=== PATIENT | female | born 1980 | race Caucasian/White ===

== ENCOUNTER 2020-10-28 11:33 | Inpatient (IN) | payer OTHER ==
[2020-10-28 15:17] VITALS: BMI 20.8
[2020-10-28] MEDS ORDERED: MAGNESIUM HYDROX 2400MG/30ML ORAL SUSPENSION 30 ML CUP PO PRN (15:25)
[2020-10-28] MEDS ORDERED: MAG HYDROX/AL HYDROX/SIMETH 30 ML UNIT-DOSE CUP PO PRN (15:25)
[2020-10-28] MEDS ORDERED: IBUPROFEN 400 MG TABLET (FP) PO PRN (15:25)
[2020-10-28] MEDS ORDERED: MAGNESIUM CITRATE 300 ML BOTTLE PO PRN (15:25)
[2020-10-28] MEDS ORDERED: chlordiazePOXIDE HCL 25 MG CAPSULE PO PRN (15:25)
[2020-10-28] MEDS ORDERED: NICOTINE POLACRILEX 2 MG GUM BUC PRN (15:25)
[2020-10-28] MEDS ORDERED: ACETAMINOPHEN 325 MG TABLET (FP) PO PRN ×2 (15:25)
[2020-10-28] MEDS ORDERED: MENTHOL/PHENOL 1 EACH UD MM PRN (15:25)
[2020-10-28] MEDS ORDERED: ONDANSETRON *ODT* 4 MG TABLET SL PRN (15:25)
[2020-10-28] MEDS ORDERED: BISMUTH SUBSALICYLATE 524 MG/30 ML UD PO PRN (15:25)
[2020-10-28] MEDS: chlordiazePOXIDE HCL 25 MG CAPSULE PO SCH ×2 (17:27→22:08)
[2020-10-28] MEDS: NICOTINE 21 MG/24 HOURS TOPICAL PATCH TD SCH (17:48)
[2020-10-28] MEDS ORDERED: hydrOXYzine PAMOATE 25 MG CAPSULE (FP) PO SCH (18:00)
[2020-10-28] MEDS: PRENATAL VITAMINS W/ FOLIC ACID TABLET (FP) PO SCH (18:30)
[2020-10-28] MEDS: THIAMINE HCL 100 MG TABLET (FP) PO SCH (21:21)
[2020-10-28] MEDS ORDERED: MELATONIN 5 MG TABLETS PO SCH (22:00)
[2020-10-29] MEDS: chlordiazePOXIDE HCL 25 MG CAPSULE PO SCH ×4 (05:57→22:04)
[2020-10-29] MEDS ORDERED: MASKS NR ONE (09:15)
[2020-10-29 10:29] LABS: HEMATOCRIT 31.6 % (32.4-45.2); HEMOGLOBIN 10.6 GM/dL (10.7-15.3); MCH 32.4 pg (25.7-33.7); MCHC 33.4 g/dl (32.0-36.0); MEAN CELL VOLUME 97.2 fl (80-96); MEAN PLT VOLUME 9.7 fl (7.5-11.1); PLATELET COUNT 66 K/MM3 (134-434); RBC 3.25 M/mm3 (3.60-5.2); RDW 13.6 % (11.6-15.6); WHITE BLOOD COUNT 3.8 K/mm3 (4.0-10.0)
[2020-10-29 10:30] LABS: POTASSIUM 3.4 mmol/L (3.5-5.1)
[2020-10-29] MEDS: PRENATAL VITAMINS W/ FOLIC ACID TABLET (FP) PO SCH (10:35)
[2020-10-29] MEDS: NICOTINE 21 MG/24 HOURS TOPICAL PATCH TD SCH (10:35)
[2020-10-29] MEDS: METHOCARBAMOL 500 MG TABLET PO PRN (10:36)
[2020-10-29 10:37] LABS: ALBUMIN 3.4 g/dl (3.4-5.0); BLOOD UREA NITROGEN 12.2 mg/dL (7-18)
[2020-10-29 10:40] LABS: CREATININE 0.6 mg/dL (0.55-1.3)
[2020-10-29 10:42] LABS: BILIRUBIN,TOTAL 1.1 mg/dL (0.2-1); TOT PROT 6.6 g/dl (6.4-8.2)
[2020-10-29] MEDS: LISINOPRIL 10 MG TABLET PO SCH (11:41)
[2020-10-29] MEDS: HYDROCHLOROTHIAZIDE 25 MG TABLET (FP) PO SCH (11:41)
[2020-10-29] MEDS ORDERED: IBUPROFEN 600 MG TABLET (FP) PO PRN (13:40)
[2020-10-29] MEDS: METHYL SALICYLATE/MENTHOL OINT 30 GM TUBE TP SCH ×2 (15:47→22:04)
[2020-10-29] MEDS: hydrOXYzine PAMOATE 50 MG CAPSULE (FP) PO PRN ×2 (17:42→22:04)
[2020-10-29 18:50] LABS: URINE APPEARANCE CLEAR; URINE BILIRUBIN NEGATIVE (NEGATIVE); URINE COLOR YELLOW; URINE GLUCOSE (UA) NEGATIVE (NEGATIVE); URINE KETONE NEGATIVE (NEGATIVE); URINE LEUK ESTERASE NEGATIVE (NEGATIVE); URINE NITRITE NEGATIVE (NEGATIVE); URINE PROTEIN NEGATIVE (NEGATIVE)
[2020-10-29] MEDS: THIAMINE HCL 100 MG TABLET (FP) PO SCH (22:03)
[2020-10-29] MEDS: SUVOREXANT 10 MG TABLET PO PRN (22:04)
[2020-10-30] MEDS: chlordiazePOXIDE HCL 25 MG CAPSULE PO SCH ×4 (06:03→22:05)
[2020-10-30] MEDS: METHYL SALICYLATE/MENTHOL OINT 30 GM TUBE TP SCH ×2 (10:30→23:47)
[2020-10-30] MEDS: NICOTINE 21 MG/24 HOURS TOPICAL PATCH TD SCH (10:31)
[2020-10-30 10:34] LABS: BASO % 0.5 % (0-2.0); EOS % 3.3 % (0-4.5); HEMATOCRIT 32.4 % (32.4-45.2); HEMOGLOBIN 10.7 GM/dL (10.7-15.3); MCH 32.1 pg (25.7-33.7); MCHC 33.1 g/dl (32.0-36.0); MEAN PLT VOLUME 10.1 fl (7.5-11.1); MONO % 10.9 % (3.8-10.2); NEUT % 50.3 % (42.8-82.8); PLATELET COUNT 83 K/MM3 (134-434); RBC 3.34 M/mm3 (3.60-5.2); RDW 13.8 % (11.6-15.6); WHITE BLOOD COUNT 3.3 K/mm3 (4.0-10.0)
[2020-10-30 10:45] LABS: ALBUMIN 3.5 g/dl (3.4-5.0); BLOOD UREA NITROGEN 12.4 mg/dL (7-18)
[2020-10-30 10:46] LABS: CALCIUM 8.9 mg/dL (8.5-10.1)
[2020-10-30 10:47] LABS: BILIRUBIN,TOTAL 0.4 mg/dL (0.2-1); TOT PROT 6.9 g/dl (6.4-8.2)
[2020-10-30 10:49] LABS: CREATININE 0.5 mg/dL (0.55-1.3)
[2020-10-30] MEDS: LISINOPRIL 10 MG TABLET PO SCH (13:17)
[2020-10-30] MEDS: HYDROCHLOROTHIAZIDE 25 MG TABLET (FP) PO SCH (13:17)
[2020-10-30] MEDS: PRENATAL VITAMINS W/ FOLIC ACID TABLET (FP) PO SCH (13:17)
[2020-10-30] MEDS: hydrOXYzine PAMOATE 50 MG CAPSULE (FP) PO PRN (14:55)
[2020-10-30] MEDS: METHOCARBAMOL 500 MG TABLET PO PRN (14:55)
[2020-10-30] MEDS: THIAMINE HCL 100 MG TABLET (FP) PO SCH (22:05)
[2020-10-30] MEDS: SUVOREXANT 10 MG TABLET PO PRN (22:06)
[2020-10-31] MEDS ORDERED: chlordiazePOXIDE HCL 10 MG CAPSULE PO PRN
[2020-10-31] MEDS: chlordiazePOXIDE HCL 10 MG CAPSULE PO SCH ×2 (06:34→10:13)
[2020-10-31 09:28] LABS: BASO % 0.3 % (0-2.0); HEMATOCRIT 32.1 % (32.4-45.2); HEMOGLOBIN 10.6 GM/dL (10.7-15.3); LYMPH % 29.6 % (8-40); MCH 32.2 pg (25.7-33.7); MCHC 32.9 g/dl (32.0-36.0); MEAN CELL VOLUME 97.9 fl (80-96); MONO % 16.8 % (3.8-10.2); NEUT % 50.3 % (42.8-82.8); PLATELET COUNT 108 K/MM3 (134-434); RBC 3.28 M/mm3 (3.60-5.2); RDW 14.1 % (11.6-15.6); WHITE BLOOD COUNT 4.4 K/mm3 (4.0-10.0)
[2020-10-31 09:38] LABS: POTASSIUM 4.2 mmol/L (3.5-5.1)
[2020-10-31 10:06] LABS: ALBUMIN 3.4 g/dl (3.4-5.0); BLOOD UREA NITROGEN 15.8 mg/dL (7-18)
[2020-10-31 10:09] LABS: CREATININE 0.5 mg/dL (0.55-1.3)
[2020-10-31 10:10] LABS: BILIRUBIN,TOTAL 0.7 mg/dL (0.2-1); TOT PROT 6.7 g/dl (6.4-8.2)
[2020-10-31] MEDS: PRENATAL VITAMINS W/ FOLIC ACID TABLET (FP) PO SCH (10:13)
[2020-10-31] MEDS: NICOTINE 21 MG/24 HOURS TOPICAL PATCH TD SCH (10:13)
[2020-10-31] MEDS: METHYL SALICYLATE/MENTHOL OINT 30 GM TUBE TP SCH ×2 (10:14→22:09)
[2020-10-31] MEDS: LORazepam 0.5 MG TABLET PO PRN (13:06)
[2020-10-31] MEDS: LORazepam 1 MG TABLET PO SCH ×2 (16:49→22:09)
[2020-10-31] MEDS: hydrOXYzine PAMOATE 50 MG CAPSULE (FP) PO PRN (19:02)
[2020-10-31] MEDS: SUVOREXANT 10 MG TABLET PO PRN (22:08)
[2020-10-31] MEDS: THIAMINE HCL 100 MG TABLET (FP) PO SCH (22:09)
[2020-11-01] MEDS ORDERED: chlordiazePOXIDE HCL 10 MG CAPSULE PO SCH (05:00)
[2020-11-01] MEDS: LORazepam 0.5 MG TABLET PO SCH ×4 (06:31→22:08)
[2020-11-01] MEDS: NICOTINE 21 MG/24 HOURS TOPICAL PATCH TD SCH (10:05)
[2020-11-01] MEDS: LISINOPRIL 10 MG TABLET PO SCH (10:06)
[2020-11-01] MEDS: HYDROCHLOROTHIAZIDE 25 MG TABLET (FP) PO SCH (10:06)
[2020-11-01] MEDS: METHYL SALICYLATE/MENTHOL OINT 30 GM TUBE TP SCH ×2 (10:08→22:44)
[2020-11-01] MEDS: PRENATAL VITAMINS W/ FOLIC ACID TABLET (FP) PO SCH (10:09)
[2020-11-01] MEDS: hydrOXYzine PAMOATE 50 MG CAPSULE (FP) PO PRN ×3 (10:10→23:19)
[2020-11-01] MEDS: METHOCARBAMOL 500 MG TABLET PO PRN ×2 (14:06→22:07)
[2020-11-01] MEDS: LORazepam 0.5 MG TABLET PO PRN (14:06)
[2020-11-01] MEDS: THIAMINE HCL 100 MG TABLET (FP) PO SCH (22:08)
[2020-11-02] MEDS ORDERED: chlordiazePOXIDE HCL 10 MG CAPSULE PO ONE (05:00)
[2020-11-02] MEDS ORDERED: LORazepam 0.5 MG TABLET PO ONE (05:00)
[2020-11-02] MEDS: METHYL SALICYLATE/MENTHOL OINT 30 GM TUBE TP SCH (10:09)
[2020-11-02] MEDS: PRENATAL VITAMINS W/ FOLIC ACID TABLET (FP) PO SCH (10:09)
[2020-11-02] MEDS: NICOTINE 21 MG/24 HOURS TOPICAL PATCH TD SCH (10:09)
[2020-11-02] MEDS: LISINOPRIL 10 MG TABLET PO SCH (10:09)
[2020-11-02] MEDS: HYDROCHLOROTHIAZIDE 25 MG TABLET (FP) PO SCH (10:09)
[2020-11-02] MEDS: hydrOXYzine PAMOATE 50 MG CAPSULE (FP) PO PRN (10:10)
[2020-11-02 10:47] LABS: SGOT/AST 259 U/L (15-37)
[2020-11-02 10:48] LABS: SGPT/ALT 416 U/L (13-61)
[2020-11-02 15:31] VITALS: BP 115/68; PULSE 97; TEMP 97.8
== END 2020-11-02 13:50 | disposition home or self-care (01) | DRG 897 ==
LOC: YASAS 11:33 → Y6N 16:01
PROVIDERS: ADMIT Allergy & Immunology; ATTEND Allergy & Immunology
PROC: HZ2ZZZZ Detoxification Services for Substance Abuse Treatment (ICD-10-PCS; principal; 2020-10-28)
DX: F10.230 Alcohol dependence with withdrawal, uncomplicated (principal); F10.24 Alcohol dependence with alcohol-induced mood disorder; F10.280 Alcohol dependence with alcohol-induced anxiety disorder; F10.282 Alcohol dependence with alcohol-induced sleep disorder; F14.10 Cocaine abuse, uncomplicated; F12.10 Cannabis abuse, uncomplicated; F17.210 Nicotine dependence, cigarettes, uncomplicated; F32.9 Major depressive disorder, single episode, unspecified; I10 Essential (primary) hypertension; K21.9 Gastro-esophageal reflux disease without esophagitis; R94.5 Abnormal results of liver function studies; R74.01 Elevation of levels of liver transaminase levels; M79.642 Pain in left hand; R23.8 Other skin changes; R00.0 Tachycardia, unspecified; Z62.810 Personal history of physical and sexual abuse in childhood
CPT/HCPCS: 36415; 80053; 81003; 81025; 84450; 84460; 85025; 85027; 86780; 93005; 93010; C9803; U0003

== ENCOUNTER 2022-05-05 11:03 | Inpatient (IN) | payer OTHER ==
[2022-05-05 11:12] VITALS: BMI 24.8
[2022-05-05] MEDS ORDERED: DICYCLOMINE HCL 10 MG CAPSULE PO PRN (11:41)
[2022-05-05] MEDS ORDERED: MAG HYDROX/AL HYDROX/SIMETH 30 ML UNIT-DOSE CUP PO PRN (11:41)
[2022-05-05] MEDS ORDERED: MAGNESIUM HYDROX 2400MG/30ML ORAL SUSPENSION 30 ML CUP PO PRN (11:41)
[2022-05-05] MEDS ORDERED: IBUPROFEN 400 MG TABLET (FP) PO PRN (11:41)
[2022-05-05] MEDS ORDERED: BISMUTH SUBSALICYLATE 262 MG/15 ML BTL PO PRN (11:41)
[2022-05-05] MEDS ORDERED: ACETAMINOPHEN 325 MG TABLET (FP) PO PRN ×2 (11:41)
[2022-05-05] MEDS ORDERED: ONDANSETRON *ODT* 4 MG TABLET SL PRN (11:41)
[2022-05-05] MEDS ORDERED: IBUPROFEN 600 MG TABLET (FP) PO PRN (11:41)
[2022-05-05] MEDS ORDERED: MAGNESIUM CITRATE 300 ML BOTTLE PO PRN (11:41)
[2022-05-05] MEDS ORDERED: BENZOCAINE/MENTHOL (CHLORASEPTIC ) LOZENGE MM PRN (11:41)
[2022-05-05] MEDS ORDERED: LOPERAMIDE HCL 2 MG CAPSULE PO PRN (11:41)
[2022-05-05] MEDS: LORazepam 1 MG TABLET PO PRN (14:24)
[2022-05-05] MEDS: NICOTINE 10 MG CARTRIDGE (INHALER) IH PRN ×2 (14:26→17:59)
[2022-05-05] MEDS: hydrOXYzine PAMOATE 25 MG CAPSULE (FP) PO SCH ×3 (14:30→22:32)
[2022-05-05 14:32] LABS: HEMATOCRIT 29.7 % (32.4-45.2); HEMOGLOBIN 9.8 GM/dL (10.7-15.3); MCH 31.7 pg (25.7-33.7); MCHC 33.1 g/dl (32.0-36.0); MEAN CELL VOLUME 95.8 fl (80-96); MEAN PLT VOLUME 7.2 fl (7.5-11.1); PLATELET COUNT 405 10^3/uL (134-434); RDW 14.9 % (11.6-15.6); WHITE BLOOD COUNT 5.6 K/mm3 (4.0-10.0)
[2022-05-05 15:38] LABS: BLOOD UREA NITROGEN 8.8 mg/dL (7-18); CALCIUM 9.2 mg/dL (8.5-10.1)
[2022-05-05 15:39] LABS: ALBUMIN 3.8 g/dl (3.4-5.0)
[2022-05-05 15:42] LABS: CREATININE 0.8 mg/dL (0.55-1.3)
[2022-05-05 15:43] LABS: BILIRUBIN,TOTAL 0.2 mg/dL (0.2-1); TOT PROT 8.4 g/dl (6.4-8.2)
[2022-05-05] MEDS: METHOCARBAMOL 500 MG TABLET PO PRN (18:00)
[2022-05-05] MEDS: LORazepam 2 MG TABLET PO SCH ×2 (18:00→22:32)
[2022-05-05] MEDS ORDERED: MELATONIN 5 MG TABLETS PO SCH (22:00)
[2022-05-05] MEDS: THIAMINE HCL 100 MG TABLET (FP) PO SCH (22:32)
[2022-05-06] MEDS: hydrOXYzine PAMOATE 25 MG CAPSULE (FP) PO SCH ×5 (05:22→23:06)
[2022-05-06] MEDS: LORazepam 2 MG TABLET PO SCH ×4 (05:22→23:06)
[2022-05-06] MEDS: PRENATAL VITAMINS W/ FOLIC ACID TABLET (FP) PO SCH (10:45)
[2022-05-06] MEDS: FAMOTIDINE 20 MG TABLET PO SCH (11:49)
[2022-05-06] MEDS: LISINOPRIL 10 MG TABLET PO SCH (11:49)
[2022-05-06] MEDS: NICOTINE 14 MG/24 HOURS TOPICAL PATCH TD SCH (12:37)
[2022-05-06] MEDS: THIAMINE HCL 100 MG TABLET (FP) PO SCH (23:06)
[2022-05-06] MEDS: SUVOREXANT 10 MG TABLET PO PRN (23:08)
[2022-05-07] MEDS: LORazepam 1 MG TABLET PO PRN (01:43)
[2022-05-07] MEDS: hydrOXYzine PAMOATE 25 MG CAPSULE (FP) PO SCH ×5 (05:58→22:19)
[2022-05-07] MEDS: LORazepam 1 MG TABLET PO SCH ×4 (05:58→22:19)
[2022-05-07] MEDS: PRENATAL VITAMINS W/ FOLIC ACID TABLET (FP) PO SCH (10:49)
[2022-05-07] MEDS: FAMOTIDINE 20 MG TABLET PO SCH (10:50)
[2022-05-07] MEDS: LISINOPRIL 10 MG TABLET PO SCH (10:50)
[2022-05-07] MEDS: NICOTINE 14 MG/24 HOURS TOPICAL PATCH TD SCH (10:50)
[2022-05-07] MEDS: METHOCARBAMOL 500 MG TABLET PO PRN ×2 (10:50→17:56)
[2022-05-07] MEDS: NICOTINE 10 MG CARTRIDGE (INHALER) IH PRN (19:32)
[2022-05-07] MEDS: THIAMINE HCL 100 MG TABLET (FP) PO SCH (22:20)
[2022-05-07] MEDS: SUVOREXANT 10 MG TABLET PO PRN (22:21)
[2022-05-08] MEDS ORDERED: LORazepam 0.5 MG TABLET PO PRN
[2022-05-08] MEDS: LORazepam 0.5 MG TABLET PO SCH ×4 (06:03→22:26)
[2022-05-08] MEDS: hydrOXYzine PAMOATE 25 MG CAPSULE (FP) PO SCH ×5 (06:03→22:26)
[2022-05-08] MEDS: NICOTINE 10 MG CARTRIDGE (INHALER) IH PRN ×3 (06:04→18:16)
[2022-05-08] MEDS: FAMOTIDINE 20 MG TABLET PO SCH (10:03)
[2022-05-08] MEDS: NICOTINE 14 MG/24 HOURS TOPICAL PATCH TD SCH (10:03)
[2022-05-08] MEDS: PRENATAL VITAMINS W/ FOLIC ACID TABLET (FP) PO SCH (10:03)
[2022-05-08] MEDS: LISINOPRIL 10 MG TABLET PO SCH (10:03)
[2022-05-08] MEDS: METHOCARBAMOL 500 MG TABLET PO PRN (10:03)
[2022-05-08] MEDS: SUVOREXANT 10 MG TABLET PO PRN (22:25)
[2022-05-08] MEDS: THIAMINE HCL 100 MG TABLET (FP) PO SCH (22:26)
[2022-05-09] MEDS ORDERED: LORazepam 0.5 MG TABLET PO ONE (05:00)
[2022-05-09] MEDS: hydrOXYzine PAMOATE 25 MG CAPSULE (FP) PO SCH (05:46)
[2022-05-09 09:25] VITALS: BP 125/89; PULSE 69; TEMP 97.7
== END 2022-05-09 09:38 | disposition home or self-care (01) | DRG 897 ==
LOC: YASAS 11:03 → Y6N 13:49
PROVIDERS: ADMIT Allergy & Immunology; ATTEND Surgery
PROC: HZ2ZZZZ Detoxification Services for Substance Abuse Treatment (ICD-10-PCS; principal; 2022-05-05)
DX: F10.230 Alcohol dependence with withdrawal, uncomplicated (principal); F14.10 Cocaine abuse, uncomplicated; F12.10 Cannabis abuse, uncomplicated; F17.290 Nicotine dependence, other tobacco product, uncomplicated; F10.280 Alcohol dependence with alcohol-induced anxiety disorder; F41.9 Anxiety disorder, unspecified; D64.9 Anemia, unspecified; I10 Essential (primary) hypertension; K21.9 Gastro-esophageal reflux disease without esophagitis
CPT/HCPCS: 36415; 80053; 81025; 85027; 86780; C9803-CS; U0003; U0005

== ENCOUNTER 2022-05-14 11:37 | Inpatient (IN) | payer OTHER ==
[2022-05-14] MEDS ORDERED: ACETAMINOPHEN 325 MG TABLET (FP) PO PRN ×2 (19:58)
[2022-05-14] MEDS ORDERED: ONDANSETRON *ODT* 4 MG TABLET SL PRN (19:58)
[2022-05-14] MEDS ORDERED: LOPERAMIDE HCL 2 MG CAPSULE PO PRN (19:58)
[2022-05-14] MEDS ORDERED: BENZOCAINE/MENTHOL (CHLORASEPTIC ) LOZENGE MM PRN (19:58)
[2022-05-14] MEDS ORDERED: IBUPROFEN 600 MG TABLET (FP) PO PRN (19:58)
[2022-05-14] MEDS ORDERED: BISMUTH SUBSALICYLATE 524 MG/30 ML PO PRN (19:58)
[2022-05-14] MEDS ORDERED: MAGNESIUM HYDROX 2400MG/30ML ORAL SUSPENSION 30 ML CUP PO PRN (19:58)
[2022-05-14] MEDS ORDERED: IBUPROFEN 400 MG TABLET (FP) PO PRN (19:58)
[2022-05-14] MEDS ORDERED: MAGNESIUM CITRATE 300 ML BOTTLE PO PRN (19:58)
[2022-05-14] MEDS ORDERED: DICYCLOMINE HCL 10 MG CAPSULE PO PRN (19:58)
[2022-05-14] MEDS ORDERED: NICOTINE POLACRILEX 2 MG GUM BUC PRN (19:58)
[2022-05-14] MEDS ORDERED: chlordiazePOXIDE HCL 25 MG CAPSULE PO PRN (19:58)
[2022-05-14 20:18] VITALS: BMI 23.8
[2022-05-14] MEDS ORDERED: busPIRone HCL 5 MG TABLET PO ONE (20:27)
[2022-05-14] MEDS ORDERED: GABAPENTIN 100 MG CAPSULE PO ONE (20:28)
[2022-05-14] MEDS ORDERED: MELATONIN 5 MG TABLETS PO SCH (22:00)
[2022-05-14] MEDS: THIAMINE HCL 100 MG TABLET (FP) PO SCH (22:01)
[2022-05-14] MEDS: hydrOXYzine PAMOATE 25 MG CAPSULE (FP) PO SCH (22:01)
[2022-05-14] MEDS: NICOTINE 10 MG CARTRIDGE (INHALER) IH PRN (22:05)
[2022-05-14] MEDS: chlordiazePOXIDE HCL 25 MG CAPSULE PO SCH (22:06)
[2022-05-15] MEDS: chlordiazePOXIDE HCL 25 MG CAPSULE PO SCH ×4 (06:34→22:06)
[2022-05-15] MEDS: hydrOXYzine PAMOATE 25 MG CAPSULE (FP) PO SCH ×2 (06:35→10:32)
[2022-05-15 10:08] LABS: HEMATOCRIT 29.1 % (32.4-45.2); HEMOGLOBIN 9.9 GM/dL (10.7-15.3); MCH 32.1 pg (25.7-33.7); MCHC 34.1 g/dl (32.0-36.0); MEAN CELL VOLUME 94.1 fl (80-96); MEAN PLT VOLUME 7.9 fl (7.5-11.1); PLATELET COUNT 269 10^3/uL (134-434); RBC 3.09 M/mm3 (3.60-5.2); WHITE BLOOD COUNT 7.1 K/mm3 (4.0-10.0)
[2022-05-15 10:17] LABS: CALCIUM 8.8 mg/dL (8.5-10.1)
[2022-05-15 10:18] LABS: BLOOD UREA NITROGEN 13.5 mg/dL (7-18); CREATININE 0.9 mg/dL (0.55-1.3)
[2022-05-15 10:20] LABS: BILIRUBIN,TOTAL 0.4 mg/dL (0.2-1); TOT PROT 7.1 g/dl (6.4-8.2)
[2022-05-15 10:21] LABS: ALBUMIN 3.1 g/dl (3.4-5.0)
[2022-05-15] MEDS: PRENATAL VITAMINS W/ FOLIC ACID TABLET (FP) PO SCH (10:32)
[2022-05-15] MEDS: NICOTINE 21 MG/24 HOURS TOPICAL PATCH TD SCH (10:32)
[2022-05-15] MEDS: NICOTINE 10 MG CARTRIDGE (INHALER) IH PRN ×2 (10:33→22:09)
[2022-05-15] MEDS ORDERED: MELATONIN 5 MG TABLETS PO SCH (10:37)
[2022-05-15] MEDS: GABAPENTIN 100 MG CAPSULE PO SCH ×2 (13:46→22:06)
[2022-05-15 17:39] LABS: EPI CELLS >36 /uL (0-25.1); HYALINE CASTS 11 /uL (0-3.1); URINE APPEARANCE CLOUDY; URINE BACTERIA 2149 /uL (0-1359); URINE BILIRUBIN NEGATIVE (NEGATIVE); URINE COLOR YELLOW; URINE GLUCOSE (UA) NEGATIVE (NEGATIVE); URINE KETONE NEGATIVE (NEGATIVE); URINE LEUK ESTERASE 2+ (NEGATIVE); URINE NITRITE NEGATIVE (NEGATIVE); URINE PROTEIN TRACE (NEGATIVE); URINE RBC 17 /uL (0-23.9); URINE UROBILINOGEN 0.2 mg/dL (0.2-1.0); URINE WBC 207 /uL (0-25.8)
[2022-05-15] MEDS: LISINOPRIL 10 MG TABLET PO SCH (19:00)
[2022-05-15] MEDS: busPIRone HCL 5 MG TABLET PO SCH (22:05)
[2022-05-15] MEDS: QUEtiapine FUMARATE 50 MG TABLET PO SCH (22:06)
[2022-05-15] MEDS: THIAMINE HCL 100 MG TABLET (FP) PO SCH (22:06)
[2022-05-16] MEDS: chlordiazePOXIDE HCL 25 MG CAPSULE PO SCH ×4 (05:36→22:01)
[2022-05-16] MEDS: hydrOXYzine PAMOATE 25 MG CAPSULE (FP) PO PRN ×2 (05:37→17:55)
[2022-05-16] MEDS: GABAPENTIN 100 MG CAPSULE PO SCH ×3 (05:37→22:01)
[2022-05-16] MEDS: PRENATAL VITAMINS W/ FOLIC ACID TABLET (FP) PO SCH (10:24)
[2022-05-16] MEDS: LISINOPRIL 10 MG TABLET PO SCH (10:26)
[2022-05-16] MEDS: NICOTINE 21 MG/24 HOURS TOPICAL PATCH TD SCH (10:31)
[2022-05-16] MEDS: busPIRone HCL 5 MG TABLET PO SCH ×2 (10:31→22:00)
[2022-05-16 18:49] LABS: EPI CELLS >36 /uL (0-25.1); HYALINE CASTS 2 /uL (0-3.1); PH,URINE 6.5 (5.0-8.0); URINE APPEARANCE CLOUDY; URINE BACTERIA 1993 /uL (0-1359); URINE BILIRUBIN NEGATIVE (NEGATIVE); URINE COLOR YELLOW; URINE GLUCOSE (UA) NEGATIVE (NEGATIVE); URINE KETONE NEGATIVE (NEGATIVE); URINE LEUK ESTERASE 2+ (NEGATIVE); URINE NITRITE NEGATIVE (NEGATIVE); URINE PROTEIN NEGATIVE (NEGATIVE); URINE RBC 12 /uL (0-23.9); URINE UROBILINOGEN 0.2 mg/dL (0.2-1.0); URINE WBC 89 /uL (0-25.8)
[2022-05-16] MEDS: QUEtiapine FUMARATE 50 MG TABLET PO SCH (22:00)
[2022-05-16] MEDS: THIAMINE HCL 100 MG TABLET (FP) PO SCH (22:01)
[2022-05-16] MEDS: NICOTINE 10 MG CARTRIDGE (INHALER) IH PRN (22:03)
[2022-05-17] MEDS ORDERED: chlordiazePOXIDE HCL 10 MG CAPSULE PO PRN
[2022-05-17] MEDS: GABAPENTIN 100 MG CAPSULE PO SCH ×3 (05:39→22:15)
[2022-05-17] MEDS: chlordiazePOXIDE HCL 10 MG CAPSULE PO SCH ×4 (05:39→22:15)
[2022-05-17] MEDS: NICOTINE 10 MG CARTRIDGE (INHALER) IH PRN ×4 (05:40→22:16)
[2022-05-17] MEDS: busPIRone HCL 5 MG TABLET PO SCH ×2 (10:19→22:15)
[2022-05-17] MEDS: PRENATAL VITAMINS W/ FOLIC ACID TABLET (FP) PO SCH (10:19)
[2022-05-17] MEDS: LISINOPRIL 10 MG TABLET PO SCH (10:19)
[2022-05-17] MEDS: NICOTINE 21 MG/24 HOURS TOPICAL PATCH TD SCH (10:23)
[2022-05-17] MEDS: MAG HYDROX/AL HYDROX/SIMETH 30 ML UNIT-DOSE CUP PO PRN (10:24)
[2022-05-17] MEDS: hydrOXYzine PAMOATE 25 MG CAPSULE (FP) PO PRN (17:55)
[2022-05-17] MEDS: THIAMINE HCL 100 MG TABLET (FP) PO SCH (22:15)
[2022-05-17] MEDS: QUEtiapine FUMARATE 50 MG TABLET PO SCH (22:15)
[2022-05-18] MEDS: chlordiazePOXIDE HCL 10 MG CAPSULE PO SCH ×2 (05:21→17:25)
[2022-05-18] MEDS: MAG HYDROX/AL HYDROX/SIMETH 30 ML UNIT-DOSE CUP PO PRN ×2 (05:21→17:25)
[2022-05-18] MEDS: GABAPENTIN 100 MG CAPSULE PO SCH ×3 (05:22→22:24)
[2022-05-18] MEDS: NICOTINE 10 MG CARTRIDGE (INHALER) IH PRN ×4 (05:24→22:27)
[2022-05-18] MEDS: PRENATAL VITAMINS W/ FOLIC ACID TABLET (FP) PO SCH (10:37)
[2022-05-18] MEDS: METHOCARBAMOL 500 MG TABLET PO PRN ×2 (10:37→22:25)
[2022-05-18] MEDS: LISINOPRIL 10 MG TABLET PO SCH (10:37)
[2022-05-18] MEDS: NICOTINE 21 MG/24 HOURS TOPICAL PATCH TD SCH (10:37)
[2022-05-18] MEDS: busPIRone HCL 10 MG TABLET (FP) PO SCH ×2 (10:45→22:24)
[2022-05-18] MEDS: hydrOXYzine PAMOATE 25 MG CAPSULE (FP) PO PRN (17:27)
[2022-05-18] MEDS: QUEtiapine FUMARATE 50 MG TABLET PO SCH (22:24)
[2022-05-18] MEDS: THIAMINE HCL 100 MG TABLET (FP) PO SCH (22:24)
[2022-05-19] MEDS ORDERED: chlordiazePOXIDE HCL 10 MG CAPSULE PO ONE (05:00)
[2022-05-19] MEDS: GABAPENTIN 100 MG CAPSULE PO SCH ×2 (06:27→13:45)
[2022-05-19] MEDS: hydrOXYzine PAMOATE 25 MG CAPSULE (FP) PO PRN ×2 (06:31→12:36)
[2022-05-19] MEDS: METHOCARBAMOL 500 MG TABLET PO PRN ×2 (06:31→12:36)
[2022-05-19] MEDS: busPIRone HCL 10 MG TABLET (FP) PO SCH (09:25)
[2022-05-19] MEDS: NICOTINE 21 MG/24 HOURS TOPICAL PATCH TD SCH (09:26)
[2022-05-19] MEDS: LISINOPRIL 10 MG TABLET PO SCH (09:26)
[2022-05-19] MEDS: PRENATAL VITAMINS W/ FOLIC ACID TABLET (FP) PO SCH (09:26)
[2022-05-19] MEDS: NICOTINE 10 MG CARTRIDGE (INHALER) IH PRN (09:28)
[2022-05-19 13:03] VITALS: BP 122/79; PULSE 74; TEMP 97.1
== END 2022-05-19 17:42 | disposition other institution (70) | DRG 897 ==
LOC: SUATTDRO 11:37 → YASAS 11:37 → Y3N 21:03
PROVIDERS: ADMIT Surgery; ATTEND Allergy & Immunology
PROC: HZ2ZZZZ Detoxification Services for Substance Abuse Treatment (ICD-10-PCS; principal; 2022-05-14)
DX: F10.230 Alcohol dependence with withdrawal, uncomplicated (principal); F14.20 Cocaine dependence, uncomplicated; F19.282 Other psychoactive substance dependence with psychoactive substance-induced sleep disorder; F19.280 Other psychoactive substance dependence with psychoactive substance-induced anxiety disorder; F12.20 Cannabis dependence, uncomplicated; F17.210 Nicotine dependence, cigarettes, uncomplicated; F19.24 Other psychoactive substance dependence with psychoactive substance-induced mood disorder; F41.1 Generalized anxiety disorder; F32.A Depression, unspecified; G47.00 Insomnia, unspecified; I10 Essential (primary) hypertension; K21.9 Gastro-esophageal reflux disease without esophagitis; R82.998 Other abnormal findings in urine; Z62.810 Personal history of physical and sexual abuse in childhood; Z91.410 Personal history of adult physical and sexual abuse
CPT/HCPCS: 36415; 80053; 81003; 85027; 86780; C9803-CS; U0003; U0005

== ENCOUNTER 2022-05-19 18:43 | Inpatient (IN) | payer OTHER ==
[2022-05-19] MEDS ORDERED: guaiFENesin 200 MG/10 ML 10 ML UNIT-DOSE CUPS PO PRN (19:52)
[2022-05-19] MEDS ORDERED: P-EPHED 60MG/TRIPROLIDI 2.5MG TABLET PO PRN (19:52)
[2022-05-19] MEDS ORDERED: BENZOCAINE/MENTHOL (CHLORASEPTIC ) LOZENGE MM PRN (19:52)
[2022-05-19] MEDS ORDERED: MELATONIN 5 MG TABLETS PO PRN (19:52)
[2022-05-19] MEDS ORDERED: MAGNESIUM CITRATE 300 ML BOTTLE PO PRN (19:52)
[2022-05-19] MEDS ORDERED: IBUPROFEN 400 MG TABLET (FP) PO PRN (19:52)
[2022-05-19] MEDS ORDERED: ACETAMINOPHEN 325 MG TABLET (FP) PO PRN (19:52)
[2022-05-19] MEDS ORDERED: MAG HYDROX/AL HYDROX/SIMETH 30 ML UNIT-DOSE CUP PO PRN (19:52)
[2022-05-19] MEDS ORDERED: MAGNESIUM HYDROX 2400MG/30ML ORAL SUSPENSION 30 ML CUP PO PRN (19:52)
[2022-05-19] MEDS ORDERED: LOPERAMIDE HCL 2 MG CAPSULE PO PRN (19:52)
[2022-05-19] MEDS: hydrOXYzine PAMOATE 25 MG CAPSULE (FP) PO PRN (21:09)
[2022-05-19] MEDS: METHOCARBAMOL 500 MG TABLET PO PRN (21:09)
[2022-05-19] MEDS: THIAMINE HCL 100 MG TABLET (FP) PO SCH (21:09)
[2022-05-19] MEDS: NICOTINE 10 MG CARTRIDGE (INHALER) IH PRN (21:12)
[2022-05-19] MEDS ORDERED: QUEtiapine FUMARATE 50 MG TABLET PO ONE (22:00)
[2022-05-19] MEDS ORDERED: busPIRone HCL 10 MG TABLET (FP) PO ONE (22:00)
[2022-05-19] MEDS ORDERED: GABAPENTIN 100 MG CAPSULE PO ONE (22:00)
[2022-05-20] MEDS: hydrOXYzine PAMOATE 25 MG CAPSULE (FP) PO PRN (06:04)
[2022-05-20] MEDS: LISINOPRIL 10 MG TABLET PO SCH (09:45)
[2022-05-20] MEDS: FAMOTIDINE 20 MG TABLET PO SCH (09:45)
[2022-05-20] MEDS: PRENATAL VITAMINS W/ FOLIC ACID TABLET (FP) PO SCH (09:46)
[2022-05-20] MEDS: NICOTINE 10 MG CARTRIDGE (INHALER) IH PRN ×3 (09:49→21:16)
[2022-05-20] MEDS ORDERED: busPIRone HCL 5 MG TABLET PO SCH (10:30)
[2022-05-20] MEDS: busPIRone HCL 10 MG TABLET (FP) PO SCH ×2 (13:30→21:17)
[2022-05-20] MEDS: GABAPENTIN 100 MG CAPSULE PO SCH ×2 (13:32→21:17)
[2022-05-20] MEDS ORDERED: metroNIDAZOLE 250 MG TABLET PO ONE (13:35)
[2022-05-20] MEDS: METHOCARBAMOL 500 MG TABLET PO PRN (13:39)
[2022-05-20] MEDS: LIDOCAINE 5% TOPICAL PATCH TP SCH (18:06)
[2022-05-20] MEDS: LIDOCAINE PATCH REMOVAL MC SCH (21:17)
[2022-05-20] MEDS: THIAMINE HCL 100 MG TABLET (FP) PO SCH (21:17)
[2022-05-20] MEDS: QUEtiapine FUMARATE 50 MG TABLET PO SCH (21:18)
[2022-05-21] MEDS: NICOTINE 10 MG CARTRIDGE (INHALER) IH PRN ×3 (06:50→21:34)
[2022-05-21] MEDS: METHOCARBAMOL 500 MG TABLET PO PRN ×3 (06:51→21:42)
[2022-05-21] MEDS: hydrOXYzine PAMOATE 25 MG CAPSULE (FP) PO PRN (06:52)
[2022-05-21] MEDS: GABAPENTIN 100 MG CAPSULE PO SCH ×3 (06:52→21:38)
[2022-05-21] MEDS: FAMOTIDINE 20 MG TABLET PO SCH (11:14)
[2022-05-21] MEDS: PRENATAL VITAMINS W/ FOLIC ACID TABLET (FP) PO SCH (11:14)
[2022-05-21] MEDS: busPIRone HCL 10 MG TABLET (FP) PO SCH ×2 (11:14→21:35)
[2022-05-21] MEDS: LISINOPRIL 10 MG TABLET PO SCH (11:14)
[2022-05-21] MEDS: LIDOCAINE 5% TOPICAL PATCH TP SCH (11:15)
[2022-05-21] MEDS: LIDOCAINE PATCH REMOVAL MC SCH (21:35)
[2022-05-21] MEDS: QUEtiapine FUMARATE 50 MG TABLET PO SCH (21:36)
[2022-05-21] MEDS: THIAMINE HCL 100 MG TABLET (FP) PO SCH (21:39)
[2022-05-22] MEDS: GABAPENTIN 100 MG CAPSULE PO SCH ×3 (06:29→22:37)
[2022-05-22] MEDS: NICOTINE 10 MG CARTRIDGE (INHALER) IH PRN ×3 (06:30→20:06)
[2022-05-22] MEDS: PRENATAL VITAMINS W/ FOLIC ACID TABLET (FP) PO SCH (11:01)
[2022-05-22] MEDS: busPIRone HCL 10 MG TABLET (FP) PO SCH ×2 (11:02→22:37)
[2022-05-22] MEDS: LISINOPRIL 10 MG TABLET PO SCH (11:02)
[2022-05-22] MEDS: LIDOCAINE 5% TOPICAL PATCH TP SCH (11:02)
[2022-05-22] MEDS: FAMOTIDINE 20 MG TABLET PO SCH (11:02)
[2022-05-22] MEDS: LIDOCAINE PATCH REMOVAL MC SCH (22:36)
[2022-05-22] MEDS: METHOCARBAMOL 500 MG TABLET PO PRN (22:37)
[2022-05-22] MEDS: THIAMINE HCL 100 MG TABLET (FP) PO SCH (22:37)
[2022-05-22] MEDS: QUEtiapine FUMARATE 50 MG TABLET PO SCH (22:37)
[2022-05-23] MEDS: GABAPENTIN 100 MG CAPSULE PO SCH ×3 (06:34→21:22)
[2022-05-23] MEDS: NICOTINE 10 MG CARTRIDGE (INHALER) IH PRN ×3 (06:42→21:21)
[2022-05-23] MEDS: PRENATAL VITAMINS W/ FOLIC ACID TABLET (FP) PO SCH (10:42)
[2022-05-23] MEDS: FAMOTIDINE 20 MG TABLET PO SCH (10:42)
[2022-05-23] MEDS: LISINOPRIL 10 MG TABLET PO SCH (10:43)
[2022-05-23] MEDS: busPIRone HCL 10 MG TABLET (FP) PO SCH ×2 (10:43→21:22)
[2022-05-23] MEDS: LIDOCAINE 5% TOPICAL PATCH TP SCH (10:43)
[2022-05-23] MEDS: METHOCARBAMOL 500 MG TABLET PO PRN ×3 (10:43→21:24)
[2022-05-23] MEDS ORDERED: NICOTINE 14 MG/24 HOURS TOPICAL PATCH TD SCH (11:30)
[2022-05-23] MEDS: NICOTINE 21 MG/24 HOURS TOPICAL PATCH TD SCH (12:59)
[2022-05-23] MEDS: THIAMINE HCL 100 MG TABLET (FP) PO SCH (21:22)
[2022-05-23] MEDS: QUEtiapine FUMARATE 50 MG TABLET PO SCH (21:22)
[2022-05-23] MEDS: LIDOCAINE PATCH REMOVAL MC SCH (21:22)
[2022-05-24] MEDS: GABAPENTIN 100 MG CAPSULE PO SCH ×3 (06:11→21:41)
[2022-05-24] MEDS: NICOTINE 10 MG CARTRIDGE (INHALER) IH PRN ×4 (06:11→21:43)
[2022-05-24] MEDS: PRENATAL VITAMINS W/ FOLIC ACID TABLET (FP) PO SCH (10:35)
[2022-05-24] MEDS: LIDOCAINE 5% TOPICAL PATCH TP SCH (10:35)
[2022-05-24] MEDS: FAMOTIDINE 20 MG TABLET PO SCH (10:36)
[2022-05-24] MEDS: NICOTINE 21 MG/24 HOURS TOPICAL PATCH TD SCH (10:36)
[2022-05-24] MEDS: LISINOPRIL 10 MG TABLET PO SCH (10:36)
[2022-05-24] MEDS: METHOCARBAMOL 500 MG TABLET PO PRN ×2 (10:37→21:41)
[2022-05-24] MEDS: busPIRone HCL 10 MG TABLET (FP) PO SCH ×2 (10:37→21:41)
[2022-05-24] MEDS: hydrOXYzine PAMOATE 25 MG CAPSULE (FP) PO PRN (17:08)
[2022-05-24] MEDS: QUEtiapine FUMARATE 50 MG TABLET PO SCH (21:41)
[2022-05-24] MEDS: THIAMINE HCL 100 MG TABLET (FP) PO SCH (21:41)
[2022-05-24] MEDS: LIDOCAINE PATCH REMOVAL MC SCH (21:42)
[2022-05-25] MEDS: NICOTINE 10 MG CARTRIDGE (INHALER) IH PRN ×4 (05:47→21:12)
[2022-05-25] MEDS: GABAPENTIN 100 MG CAPSULE PO SCH ×3 (05:48→21:13)
[2022-05-25] MEDS: PRENATAL VITAMINS W/ FOLIC ACID TABLET (FP) PO SCH (10:46)
[2022-05-25] MEDS: FAMOTIDINE 20 MG TABLET PO SCH (10:47)
[2022-05-25] MEDS: LISINOPRIL 10 MG TABLET PO SCH (10:47)
[2022-05-25] MEDS: METHOCARBAMOL 500 MG TABLET PO PRN ×2 (10:47→21:14)
[2022-05-25] MEDS: LIDOCAINE 5% TOPICAL PATCH TP SCH (10:47)
[2022-05-25] MEDS: busPIRone HCL 10 MG TABLET (FP) PO SCH ×2 (10:47→21:13)
[2022-05-25] MEDS: NICOTINE 21 MG/24 HOURS TOPICAL PATCH TD SCH (10:47)
[2022-05-25] MEDS: THIAMINE HCL 100 MG TABLET (FP) PO SCH (21:13)
[2022-05-25] MEDS: QUEtiapine FUMARATE 50 MG TABLET PO SCH (21:13)
[2022-05-25] MEDS: LIDOCAINE PATCH REMOVAL MC SCH (21:14)
[2022-05-26] MEDS: GABAPENTIN 100 MG CAPSULE PO SCH ×3 (06:18→21:05)
[2022-05-26] MEDS: NICOTINE 10 MG CARTRIDGE (INHALER) IH PRN ×3 (06:18→17:46)
[2022-05-26] MEDS: METHOCARBAMOL 500 MG TABLET PO PRN ×2 (06:19→21:05)
[2022-05-26] MEDS: NICOTINE 21 MG/24 HOURS TOPICAL PATCH TD SCH (10:43)
[2022-05-26] MEDS: PRENATAL VITAMINS W/ FOLIC ACID TABLET (FP) PO SCH (10:43)
[2022-05-26] MEDS: LIDOCAINE 5% TOPICAL PATCH TP SCH (10:43)
[2022-05-26] MEDS: busPIRone HCL 10 MG TABLET (FP) PO SCH ×2 (10:44→21:05)
[2022-05-26] MEDS: FAMOTIDINE 20 MG TABLET PO SCH (10:44)
[2022-05-26] MEDS: LISINOPRIL 10 MG TABLET PO SCH (10:44)
[2022-05-26] MEDS: THIAMINE HCL 100 MG TABLET (FP) PO SCH (21:06)
[2022-05-26] MEDS: QUEtiapine FUMARATE 50 MG TABLET PO SCH (21:08)
[2022-05-26] MEDS: LIDOCAINE PATCH REMOVAL MC SCH (21:08)
[2022-05-27] MEDS: NICOTINE 10 MG CARTRIDGE (INHALER) IH PRN ×4 (06:38→21:20)
[2022-05-27] MEDS: GABAPENTIN 100 MG CAPSULE PO SCH ×3 (06:39→21:11)
[2022-05-27] MEDS: busPIRone HCL 10 MG TABLET (FP) PO SCH ×2 (11:03→21:11)
[2022-05-27] MEDS: FAMOTIDINE 20 MG TABLET PO SCH (11:03)
[2022-05-27] MEDS: NICOTINE 21 MG/24 HOURS TOPICAL PATCH TD SCH (11:04)
[2022-05-27] MEDS: LIDOCAINE 5% TOPICAL PATCH TP SCH (11:04)
[2022-05-27] MEDS: PRENATAL VITAMINS W/ FOLIC ACID TABLET (FP) PO SCH (11:04)
[2022-05-27] MEDS: LISINOPRIL 10 MG TABLET PO SCH (11:05)
[2022-05-27] MEDS: hydrOXYzine PAMOATE 25 MG CAPSULE (FP) PO PRN ×2 (14:23→21:14)
[2022-05-27] MEDS: THIAMINE HCL 100 MG TABLET (FP) PO SCH (21:10)
[2022-05-27] MEDS: METHOCARBAMOL 500 MG TABLET PO PRN (21:14)
[2022-05-27] MEDS: QUEtiapine FUMARATE 50 MG TABLET PO SCH (21:14)
[2022-05-27] MEDS: LIDOCAINE PATCH REMOVAL MC SCH (21:18)
[2022-05-28] MEDS: NICOTINE 10 MG CARTRIDGE (INHALER) IH PRN ×4 (06:12→22:32)
[2022-05-28] MEDS: GABAPENTIN 100 MG CAPSULE PO SCH ×3 (06:12→22:32)
[2022-05-28] MEDS: PRENATAL VITAMINS W/ FOLIC ACID TABLET (FP) PO SCH (10:21)
[2022-05-28] MEDS: LISINOPRIL 10 MG TABLET PO SCH (10:21)
[2022-05-28] MEDS: FAMOTIDINE 20 MG TABLET PO SCH (10:21)
[2022-05-28] MEDS: busPIRone HCL 10 MG TABLET (FP) PO SCH ×2 (10:21→22:31)
[2022-05-28] MEDS: LIDOCAINE 5% TOPICAL PATCH TP SCH (10:22)
[2022-05-28] MEDS: NICOTINE 21 MG/24 HOURS TOPICAL PATCH TD SCH (10:22)
[2022-05-28] MEDS: METHOCARBAMOL 500 MG TABLET PO PRN (10:23)
[2022-05-28] MEDS: LIDOCAINE PATCH REMOVAL MC SCH (22:31)
[2022-05-28] MEDS: THIAMINE HCL 100 MG TABLET (FP) PO SCH (22:32)
[2022-05-28] MEDS: QUEtiapine FUMARATE 50 MG TABLET PO SCH (22:32)
[2022-05-28] MEDS: hydrOXYzine PAMOATE 25 MG CAPSULE (FP) PO PRN (22:34)
[2022-05-29] MEDS: GABAPENTIN 100 MG CAPSULE PO SCH ×3 (06:26→22:03)
[2022-05-29] MEDS: NICOTINE 10 MG CARTRIDGE (INHALER) IH PRN ×4 (06:27→22:04)
[2022-05-29] MEDS: PRENATAL VITAMINS W/ FOLIC ACID TABLET (FP) PO SCH (10:48)
[2022-05-29] MEDS: LISINOPRIL 10 MG TABLET PO SCH (10:49)
[2022-05-29] MEDS: busPIRone HCL 10 MG TABLET (FP) PO SCH ×2 (10:49→22:03)
[2022-05-29] MEDS: FAMOTIDINE 20 MG TABLET PO SCH (10:49)
[2022-05-29] MEDS: METHOCARBAMOL 500 MG TABLET PO PRN (10:49)
[2022-05-29] MEDS: NICOTINE 21 MG/24 HOURS TOPICAL PATCH TD SCH (10:50)
[2022-05-29] MEDS: LIDOCAINE 5% TOPICAL PATCH TP SCH (10:50)
[2022-05-29] MEDS: QUEtiapine FUMARATE 50 MG TABLET PO SCH (22:03)
[2022-05-29] MEDS: LIDOCAINE PATCH REMOVAL MC SCH (22:03)
[2022-05-29] MEDS: THIAMINE HCL 100 MG TABLET (FP) PO SCH (22:03)
[2022-05-30] MEDS: GABAPENTIN 100 MG CAPSULE PO SCH ×3 (07:19→22:21)
[2022-05-30] MEDS: busPIRone HCL 10 MG TABLET (FP) PO SCH ×2 (10:47→22:21)
[2022-05-30] MEDS: NICOTINE 21 MG/24 HOURS TOPICAL PATCH TD SCH (10:47)
[2022-05-30] MEDS: LISINOPRIL 10 MG TABLET PO SCH (10:47)
[2022-05-30] MEDS: PRENATAL VITAMINS W/ FOLIC ACID TABLET (FP) PO SCH (10:47)
[2022-05-30] MEDS: LIDOCAINE 5% TOPICAL PATCH TP SCH (10:47)
[2022-05-30] MEDS: FAMOTIDINE 20 MG TABLET PO SCH (10:47)
[2022-05-30] MEDS: hydrOXYzine PAMOATE 25 MG CAPSULE (FP) PO PRN (10:48)
[2022-05-30] MEDS: NICOTINE 10 MG CARTRIDGE (INHALER) IH PRN ×2 (10:49→22:21)
[2022-05-30] MEDS: QUEtiapine FUMARATE 50 MG TABLET PO SCH (22:20)
[2022-05-30] MEDS: THIAMINE HCL 100 MG TABLET (FP) PO SCH (22:20)
[2022-05-30] MEDS: METHOCARBAMOL 500 MG TABLET PO PRN (22:21)
[2022-05-30] MEDS: LIDOCAINE PATCH REMOVAL MC SCH (22:22)
[2022-05-31] MEDS: GABAPENTIN 100 MG CAPSULE PO SCH ×3 (06:24→21:51)
[2022-05-31] MEDS: NICOTINE 10 MG CARTRIDGE (INHALER) IH PRN ×4 (06:25→21:50)
[2022-05-31] MEDS: PRENATAL VITAMINS W/ FOLIC ACID TABLET (FP) PO SCH (11:04)
[2022-05-31] MEDS: busPIRone HCL 10 MG TABLET (FP) PO SCH ×2 (11:05→21:51)
[2022-05-31] MEDS: LISINOPRIL 10 MG TABLET PO SCH (11:05)
[2022-05-31] MEDS: LIDOCAINE 5% TOPICAL PATCH TP SCH (11:05)
[2022-05-31] MEDS: FAMOTIDINE 20 MG TABLET PO SCH (11:05)
[2022-05-31] MEDS: NICOTINE 21 MG/24 HOURS TOPICAL PATCH TD SCH (11:05)
[2022-05-31] MEDS: QUEtiapine FUMARATE 50 MG TABLET PO SCH (21:50)
[2022-05-31] MEDS: THIAMINE HCL 100 MG TABLET (FP) PO SCH (21:51)
[2022-05-31] MEDS: LIDOCAINE PATCH REMOVAL MC SCH (21:53)
[2022-06-01] MEDS: GABAPENTIN 100 MG CAPSULE PO SCH (06:24)
[2022-06-01] MEDS: NICOTINE 10 MG CARTRIDGE (INHALER) IH PRN (06:25)
[2022-06-01 07:18] VITALS: TEMP 97.5
[2022-06-01] MEDS: PRENATAL VITAMINS W/ FOLIC ACID TABLET (FP) PO SCH (10:26)
[2022-06-01] MEDS: FAMOTIDINE 20 MG TABLET PO SCH (10:27)
[2022-06-01] MEDS: busPIRone HCL 10 MG TABLET (FP) PO SCH (10:27)
[2022-06-01] MEDS: LISINOPRIL 10 MG TABLET PO SCH (10:27)
[2022-06-01] MEDS: LIDOCAINE 5% TOPICAL PATCH TP SCH (10:27)
[2022-06-01] MEDS: NICOTINE 21 MG/24 HOURS TOPICAL PATCH TD SCH (10:27)
[2022-06-01 11:46] VITALS: BP 125/78; PULSE 85
== END 2022-06-01 10:55 | disposition home or self-care (01) | DRG 895 ==
LOC: YASAS 18:43 → Y5N 18:45
PROVIDERS: ADMIT Allergy & Immunology; ATTEND Psychiatry & Neurology Pain Medicine
PROC: HZ42ZZZ Group Counseling for Substance Abuse Treatment, Cognitive-Behavioral (ICD-10-PCS; principal; 2022-05-19)
DX: F10.20 Alcohol dependence, uncomplicated (principal); F14.20 Cocaine dependence, uncomplicated; F19.280 Other psychoactive substance dependence with psychoactive substance-induced anxiety disorder; F19.282 Other psychoactive substance dependence with psychoactive substance-induced sleep disorder; F12.20 Cannabis dependence, uncomplicated; F17.210 Nicotine dependence, cigarettes, uncomplicated; F19.24 Other psychoactive substance dependence with psychoactive substance-induced mood disorder; F41.8 Other specified anxiety disorders; D64.9 Anemia, unspecified; I10 Essential (primary) hypertension; K21.9 Gastro-esophageal reflux disease without esophagitis; N89.8 Other specified noninflammatory disorders of vagina; M54.50 Low back pain, unspecified; G89.29 Other chronic pain
CPT/HCPCS: 36415; 86704; 86803; 87086; 87340; 87517